=== PATIENT | male | born 1960 | race African-American/Black ===

== ENCOUNTER 2017-01-11 14:18 | Inpatient (IN) | payer MEDICARE ==
[~2017-01-11] VITALS: Ht 177.8 cm; Wt 103.8 kg
--- NOTE | ~2017-01-11 | OR ---
Unit #: [id number] #: [id number] Patient: CASH CLANCY [id number] [address] [address] [id number] I MR#: [id number] NAME: CASH CLANCY. ROOM: [facility] Date of Procedure: 01/16/2017 Admission Date: 01/13/2017 Surgeon: Leopoldo Galvez M.D. : 1960 Attending Physician: Chinedu Narayan M.D. Primary Care Physician: Agustin Clark A.P.R.N. OPERATIVE REPORT INDICATIONS FOR PROCEDURE Esophagogastroduodenoscopy with biopsies. INDICATIONS FOR PROCEDURE The patient with severe anemia of iron deficiency kind, undergoing evaluation with upper endoscopy to look for any source of bleeding. MEDICATIONS Monitored anesthesia. POSTOPERATIVE FINDINGS 1. Mild hemorrhagic gastritis diffusely, biopsies taken. 2. Normal esophagus. 3. Normal duodenum and distal duodenum. PLAN Continue with iron supplementation and PPI therapy. DESCRIPTION OF PROCEDURE The patient was explained of the procedure, risks, and benefits along with risks and benefits of anesthesia. He was brought to the endoscopy room. Propofol anesthesia was given. Bite block was placed. The scope was passed down the mouth into the esophagus, stomach, duodenum, and distal duodenum. Findings as described. Biopsies taken. Gently, I pulled it out of the patient's mouth. He tolerated it well. Dictated by... Sharee Cabrera/tejasl TD: 01/16/2017 18:11 JOB #: [id number] Unit #: [id number] #: [id number] Patient: CASH CLANCY OPERATIVE REPORT Page 1 of 1 X Leopoldo Galvez MD PROCEDURE OPERATIVE NOTE
--- NOTE | ~2017-01-11 | US77 ---
[facility] A Service of [facility] RADIOLOGY TEXT RESULTS PATIENT: CASH CLANCY LOCATION: [facility] 329- : [birth year] UNIT #: [id number] AGE: [address]: RASHAAD CHANEY V SEX: M ORDER DR: [id number] [facility] [address]. [place], [place] [address] [id number] MR#: [id number] #: [id number] NAME: CASH CLANCY. : 1960 SEX: M STUDY DATE/TIME: 01/12/2017 8:00 UNIT: [address] ROOM: [facility] STUDY DESCRIPTION: US Kidney Bilateral Complete Attending Physician: Rashaad Chaney M.D. Ordering Physician: Maria Fernanda Aragon M.D. Primary Care Physician: Agustin Clark A.P.R.N. MEDICAL IMAGING REPORT This report is preliminary unless electronic signature is present EXAM Renal ultrasound 01/12/2017 HISTORY Acute renal insufficiency, abnormal renal function tests. Elevated BUN of 76, elevated creatinine of 2.7. Abnormally low GFR of 29.2, diabetes and hypertension. FINDINGS The right kidney measures 11.7 cm while the left kidney measured 11 cm in longitudinal dimensions. There is no evidence of hydronephrosis. There is a nonobstructing stone in the midportion of the right kidney. No cystic or solid mass lesions were seen on either kidney. There is normal renal cortical echogenicity. Images of the bladder are normal. IMPRESSION 1. Nonobstructing right renal stone. Otherwise negative renal ultrasound. 2. Images of the bladder are normal. Dictated by... Bartolome Valdez M.D. THIS IS AN ELECTRONICALLY VERIFIED REPORT Bartolome Valdez M.D. at 01/13/2017 7:32 AM RANDY/isrrael TD: 01/12/2017 11:45 JOB #: [id number] MEDICAL IMAGING REPORT [facility] A Service of [facility] RADIOLOGY TEXT RESULTS PATIENT: CASH CLANCY LOCATION: [facility] 329-01 : [birth year] UNIT #: [id number] AGE: [address]: RASHAAD CHANEY V SEX: M ORDER DR: Page 1 of 1 COPY
--- NOTE | ~2017-01-11 | HP ---
Unit #: [id number] #: [id number] Patient: CASH CLANCY [id number] [address] [address] [id number] MR#: [id number] NAME: CASH CLANCY. ROOM: Age: 56 Sex: M Admission Date: 01/11/2017 : 1960 Attending Physician: Yunior Tsang M.D. Primary Care Physician: Agustin Clark A.P.R.N. HISTORY AND PHYSICAL CHIEF COMPLAINT Altered mental status and lethargy. HISTORY OF PRESENT ILLNESS The patient is a 56-year-old male with a history of coronary artery disease, chronic kidney disease stage 3, diabetes type 2, anemia, and chronic systolic heart failure, brought to the emergency room with altered mental status and lethargy. The patient was at [facility] around 1 p.m. earlier today and was found to be lethargic and incoherent. The patient was not responding. He denies any headache or any pain. However, in the emergency room, he complained of numbness and tingling in the right lower extremity and weakness in the right upper extremity. The patient denies any chest pain. The patient is being admitted for the above reasons. Denies any head trauma, denies any loss consciousness, and denies chest pain or diaphoresis. PAST MEDICAL HISTORY 1. Coronary artery disease. 2. Gouty arthritis. 3. Chronic kidney disease. 4. Diabetes mellitus type 2. 5. Hypertension. 6. Anemia. 7. Chronic systolic congestive heart failure. 8. Gastritis. PAST SURGICAL HISTORY 1. Coronary artery bypass grafting. 2. Right knee arthroscopic synovectomy. 3. Neck surgery. 4. I and D of scalp abscess. ALLERGIES No known drug allergies. HOME MEDICATIONS 1. Bumex. 2. Aspirin. 3. Multivitamins. 4. Coreg. 5. Ferrous sulfate. 6. Hydralazine. 7. Cozaar. Unit #: [id number] #: [id number] Patient: CASH CLANCY SOCIAL HISTORY Patient lives with his sister and his cyhudek-bl-jhc. He is a lifelong nonsmoker and does not drink alcohol or any illicit drug abuse. FAMILY HISTORY Hypertension and diabetes. REVIEW OF SYSTEMS Positive for lethargy, positive for numbness, positive for weakness. Denies any headache, denies any shortness of breath, and denies any chest pain. All other systems have been reviewed and are negative. PHYSICAL EXAMINATION GENERAL: Patient is lying in bed not in acute distress. VITAL SIGNS: Temperature is 99.6, pulse 80, respiratory rate 20, blood pressure 111/56, and saturating 97% on room air. HEENT: Head atraumatic, normocephalic. Pupils equal, round, and reactive to light and accommodation. Extraocular movements are intact. Dry mucous membranes. NECK: Supple. LUNGS: Decreased air entry at the bases. HEART: Regular rate and rhythm. ABDOMEN: Soft. Positive bowel sounds. EXTREMITIES: Weakness in the right upper extremity compared to the left upper extremity. No cellulitis. Positive for spasms in the right arm and biceps, (1) flexion, and unable to (2) extend. NEUROLOGIC: Alert, awake, and oriented. No gross focal motor deficit. DIAGNOSTIC STUDIES LABORATORY: Glucose is 148. Troponin less than 0.05. INR is 1.1. Sodium 136, potassium 4.4, chloride 103, bicarb 21, glucose 154, BUN 86, creatinine 3.2, calcium 8.6, AST 31, ALT 29, alkaline phosphatase 131, and albumin is 3.2. WBC 15.1, hemoglobin 8.9, hematocrit 26.7, and platelets 284,000. Urinalysis shows 2+ protein. ASSESSMENT 1. Altered mental status/transient ischemic attack. 2. Acute kidney injury on chronic kidney disease. 3. Right upper extremity weakness and spasm. PLAN Admit the patient to observation with telemetry. Will have a CT of the head to rule out stroke and will have a Renal consult for the acute on chronic kidney disease and a Neurology consult for the right upper extremity weakness and TIA. Hold diuretics and repeat the labs again in the morning. Accu-Cheks a.c. and at bedtime. Further recommendations will follow as more lab results are available. Dictated by Sharee Shah TD: 01/11/2017 21:32 JOB #: [id number] Unit #: [id number] #: [id number] Patient: CASH CLANCY HISTORY AND PHYSICAL Page 1 of 1 X KSENIA BEY MD X HISTORY AND PHYSICAL
--- NOTE | ~2017-01-11 | CO ---
Unit #: [id number] #: [id number] Patient: CASH CLANCY [id number] [facility] [address]. [place], [place] [address] [id number] I MR#: [id number] NAME: CASH CLANCY. ROOM: 329 Age: 56 Sex: M Admission Date: 01/11/2017 : 1960 Attending Physician: Chinedu Narayan M.D. Primary Care Physician: Agustin Clark A.P.R.N. Requesting Physician: Fausto Cordoba M.D. Consultation Date: 01/12/2017 CONSULTATION REPORT REASON FOR CONSULTATION Mental status changes, lethargy and also weakness and pain. PATIENT IDENTIFICATION This 56-year-old right-handed -Sammarinese male who was evaluated in room 329 at [facility]. SOURCE OF INFORMATION The patient and evaluation done by Dr. Cordoba. PROBLEM LIST 1. Coronary artery disease. 2. Gouty arthritis. 3. Chronic kidney disease but he is not on dialysis. 4. Diabetes mellitus type 2. 5. Hypertension. 6. Anemia. 7. Chronic systolic congestive heart failure. 8. Gastritis. 9. Status post CABG. 10. Right knee arthroscopic synovectomy. 11. Neck surgery. 12. I and D of scalp abscess. HISTORY OF PRESENT ILLNESS This is a very pleasant 56-year-old gentleman who actually was doing some sort of rastafari group and he began lethargic and had confusion. This was around 1:00 p.m. He came in around 2:18 p.m. via EMS with acute mental status changes, lethargy. He has not facial symptoms and sometimes his right upper extremity, sometime his right lower extremity, sometimes the left lower extremity and now is complaining of a significant pain in his right upper extremity and left lower extremity. He would not bend it. He would not let anybody touch it. He is able to move it. In the upper extremity there was no drift and weakness was very questionable, even touching his sole on the left leg started screaming. When I asked him to bend his arm, he started clutching his elbow complaining of pain. His vital signs are okay but his BUN and creatinine was elevated at 86 and 3.2. His white count was elevated at 15.1 when he came in. His H and H is 8.9 and 26.7, whether this is anemia of chronic disease we do not know. His head CT showed prior strokes. Urinalysis was otherwise unremarkable. No change in medication. No falls. No injuries. Nothing suggesting history of primary neuromuscular condition. No seizures. No (1) level. No bowel or bladder symptoms. Unit #: [id number] #: [id number] Patient: CASH CLANCY PAST MEDICAL HISTORY As discussed. PAST SURGICAL HISTORY As discussed. ALLERGIES None. HOME MEDICATIONS 1. Bumex. 2. Aspirin. 3. Multivitamin. 4. Coreg. 5. Ferrous sulfate. 6. Hydralazine. 7. Cozaar. FAMILY HISTORY Hypertension and diabetes. SOCIAL HISTORY I believe he is single and lives with his sister and ibbqolv-ej-eoy. He is a nonsmoker and nondrinker. REVIEW OF SYSTEMS Patient denies any weight issues, fever, chills, rigors, or sweats. HEENT: No headaches. No double vision, earache, runny nose or sore throat. CARDIOVASCULAR: No chest pain, clubbing, cyanosis, orthopnea, or palpitations. PULMONARY: No shortness of air, cough, or expectoration. ABDOMEN: No nausea, vomiting, diarrhea, or constipation. : No genitourinary symptoms. EXTREMITIES: Problem were discussed. BACK: Hospital back problem. PSYCHIATRIC: No issues. NEUROLOGICAL: As discussed. HEMATOLOGIC/DERMATOLOGIC/ENDOCRINE: No problems. PHYSICAL EXAMINATION VITAL SIGNS: Temperature 98 degrees Fahrenheit, T. max was 98.6, pulse 78, respirations 16, blood pressure 166/83, O2 sats are 98%, weight 290 pounds, BMI was 30. NEUROLOGICAL EXAMINATION: The patient is awake, alert. He can name and he can follow commands. No right/left confusion. No finger agnosia. CRANIAL NERVE EXAMINATION: Demonstrates full marvin of vision. Eye movements are conjugate. I did not see any ptosis. I did not see any nystagmus. Extraocular movements are intact. Sensation on the face and scalp are normal. Central muscles of facial expression are normal. Hearing seemed to be intact bilaterally. Tongue was midline. Uvula was midline. Palate elevation was normal. Head turning and shoulder shrugs were unremarkable. No neck movement abnormalities. MOTOR EXAMINATION: He had generalized weakness. I do not see any drift he was able to lift both arms but would not give me fully effort. He is complaining of pain both in active and passive movements. In the left Unit #: [id number] #: [id number] Patient: CASH CLANCY lower extremity he is probably 3- but again I couldn't even touch his left sole. I do not see any swelling. I could not get any reflexes obviously. No extinction was seen. Romberg was obviously not evaluated. COORDINATION: In the upper extremity really couldn't do much because of his elbow pain. DIAGNOSTIC STUDIES LABS AND IMAGING: Reviewed. IMPRESSION Very atypical diffuse pain but maybe more in the right elbow and the left leg, could it be gouty arthritis, is there something else. He did have strokes in the past, so I am going to start MRI of the brain and other labs. I have already talked to Dr. Narayan and will see how things go. This may be more like a musculoskeletal pain but will see how things go. Based on the MRI, will decide future course of action. I will followup. Call me if you have any other questions or concerns. Dictated by... Sharee Krueger/franko TD: 01/12/2017 11:56 JOB #: [id number] CONSULTATION REPORT Page 1 of 1 X Citlali Paez MD X CONSULTATION REPORT
--- NOTE | ~2017-01-11 | DS ---
Unit #: [id number] #: [id number] Patient: CASH CLANCY [id number] [address] [place], [place] [address] [id number] I MR#: [id number] NAME: CASH CLANCY. ROOM: 329 Age: 56 Sex: M Admission Date: 01/13/2017 : 1960 Discharge Date: Attending Physician: Chinedu Narayan M.D. Primary Care Physician: Agustin Clark A.P.R.N. DISCHARGE SUMMARY FINAL DIAGNOSES 1. Altered mental status and lethargy, resolved. 2. Severe iron deficiency anemia. 3. Acute on chronic renal failure. 4. Hyperuricemia. 5. Allodynia. SECONDARY DIAGNOSES 1. History of gout. 2. 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 3. Diabetes mellitus. CONSULTS 1. Nephrology, Dr. Sina Aragon. 2. Neurology, Dr. Paez. 3. Gastroenterology, Dr. Leopoldo Galvez. 4. Vascular surgery, Dr. Young. PROCEDURES 1. He had left temporal artery biopsy done on 01/15/17. 2. He had an EGD done by Dr. Galvez on 01/16/17 with a postop diagnosis of mild esophagitis, gastritis. Recommendation was PPI. 3. He was transfused with 1 unit of packed red blood cells on 01/16/17. HOSPITAL COURSE The patient is a pleasant 56-year-old male who presented for altered mental status. He has a history of coronary artery disease, chronic kidney disease stage 3, diabetes mellitus type 2, anemia, chronic systolic heart failure. He was brought to the emergency room with altered mental status. He usually walks with a walker at home. Was extremely lethargic and complained of pain in his legs and feet. He had a CAT scan and MRI and workup by neurology, which did not show any acute strokes. Neurology did feel that he was probably having pain in his feet secondary to allodynia. Cardiology did see the patient. He had a history of TIA. The diagnosis of giant cell arteritis was entertained. Biopsy was done. He was started on high-dose steroids. Biopsy was inconclusive to show evidence of giant cell arteritis. He was started on anticoagulation with Coumadin with goal of 2 to 3 INR. For his anemia he did receive 1 units packed red blood cells. Today, the date of discharge, hemoglobin is 8.6. Unit #: [id number] #: [id number] Patient: CASH CLANCY Acute on chronic kidney disease. He was seen by nephrology, Dr. Miguel. He was put on IV fluids, and he was started on low-dose ARB with losartan 25 mg p.o. b.i.d. per cardiology in agreement with nephrology. Diabetes mellitus type 2. Sugars are running high. His diabetic medications have been restarted. He is evaluated, suitable and stable for discharge, and he was seen and evaluated by physical therapy prior to discharge. MEDICATIONS ON DISCHARGE 1. Prednisone 40 mg every morning. This will be tapered as an outpatient. 2. Sodium bicarb 1,300 mg p.o. b.i.d. 3. Tylenol 650 mg p.o. q.6 hours p.r.n. mild pain. 4. Coumadin 3 mg p.o. daily. Repeat PT and INR on 01/20/17 for followup. 5. Diflucan 100 mg p.o. daily for 7 more days. 6. Coreg 25 mg p.o. b.i.d. 7. Amlodipine 10 mg p.o. daily. 8. Lipitor 40 mg p.o. at bedtime. 9. Hydralazine 100 mg p.o. t.i.d. 10. Cozaar 25 mg p.o. b.i.d. 11. Levemir 10 units subcu at 2200 hours. This may be addressed at outpatient followup. 12. Ferrous gluconate 324 mg p.o. daily per home dose. 13. Multivitamin 1 tablet p.o. daily. 14. Aspirin 81 mg p.o. daily. 15. Lortab 7.5/325 mg 1 tablet p.o. q.4 hours p.r.n. pain. 16. Uloric 40 mg p.o. daily. DISCHARGE PLAN He is scheduled to follow up with me in the office on 01/20/17. Will repeat a PT-INR and check a CBC, BMP and TSH, as well. Will consider outpatient physical therapy referral at the visit. NOTE: Time spent coordinating discharge was about 40 minutes. Dictated by... Sharee Appiah TD: 01/18/2017 16:11 JOB #: [id number] DISCHARGE SUMMARY Page 1 of 1 X Bia Ruano MD X DISCHARGE SUMMARY
--- NOTE | ~2017-01-11 | MR122 ---
[facility] A Service of [facility] RADIOLOGY TEXT RESULTS PATIENT: CASH CLANCY LOCATION: [facility] 329- : 60 UNIT #: [id number] AGE: [address]: RASHAAD CHANEY V SEX: M ORDER DR: [id number] [facility] [address] [place], [place] [address] [id number] I MR#: [id number] Acc #: [id number] NAME: CASH CLANCY. : 1960 SEX: M STUDY DATE/TIME: 01/13/2017 12:09 UNIT: [address] ROOM: [facility] STUDY DESCRIPTION: MR MRA Head Wo Contrast Attending Physician: Rashaad Chaney M.D. Ordering Physician: Citlali Paez M.D. Primary Care Physician: Agustin Clark A.P.R.N. MRI CENTER REPORT This report is preliminary unless electronic signature is present. EXAM MR angiogram of the head without contrast dated 01/13/2017. COMPARISON MRA neck without contrast dated 01/13/2017, MRI brain without contrast dated 01/12/2017. CT angiogram head dated 05/25/2010. HISTORY Right arm and left leg weakness since 01/11/2017. It started while patient was at [facility]. Altered mental status. FINDINGS Source and 3-D reconstruction MIP images of the saxman of [place] was obtained without contrast. Irregularities are noted throughout the course of bilateral intracranial internal carotid arteries suggestive of atherosclerotic plaques with mild narrowing involving multiple short segments without any qcyhjonm-jl-aqzzly stenosis or distal flow limitation. Mild irregularities are also noted in bilateral middle cerebral arteries involving the lateral M1 segments bilaterally and branch vessel. It is mild without any significant distal flow limitation. Bilateral anterior cerebral arteries are grossly unremarkable. ACOM is present. A small left PCOM is probably present. A tiny right PCOM cannot be excluded. Basilar artery, bilateral vertebral arteries and bilateral posterior cerebral arteries are within normal limits. No aneurysm or AVM is seen. IMPRESSION 1. Irregularities are noted in bilateral intracranial internal carotid arteries and bilateral middle cerebral arteries with short segments of stenosis in bilateral MCA involving lateral M1 segments and the left MCA proximal branch. No distal flow limitation. 2. No aneurysm or AVM. ACOM and left PCOM are present. [facility] A Service of [facility] RADIOLOGY TEXT RESULTS PATIENT: CASH CLANCY LOCATION: [place] [address] : [birth year] UNIT #: [id number] AGE: [address]: RASHAAD CHANEY V SEX: M ORDER DR: Dictated by... Jazz Smith M.D. THIS IS AN ELECTRONICALLY VERIFIED REPORT Jazz Smith M.D. at 01/15/2017 5:23 PM CPR/rnr TD: 01/13/2017 16:55 JOB #: [id number] MRI CENTER REPORT Page 1 of 1 COPY
--- NOTE | ~2017-01-11 | CO ---
Unit #: [id number] #: [id number] Patient: CASH CLANCY [id number] [address] [address] [id number] I MR#: [id number] NAME: CASH CLANCY. ROOM: 329 Age: 56 Sex: M Admission Date: 01/13/2017 : 1960 Attending Physician: Chinedu Narayan M.D. Primary Care Physician: Agustin Clark A.P.R.N. Consultation Date: 01/14/2017 CONSULTATION REPORT REASON FOR CONSULTATION Possible need for temporal artery biopsy, giant cell arteritis. HISTORY OF PRESENT ILLNESS The patient is a 56-year-old gentleman with a history of coronary artery disease and chronic kidney disease, who was brought to the emergency room with altered mental status and lethargy while at a jain group. At that time he was complaining significantly of pain in his elbow as well as foot. He was very difficult to obtain exam at that time because of his change in mental status. He reported numbness and tingling in the right leg and weakness in the right upper extremity. He denied any significant chest pain or trauma. A full workup was performed, including significant laboratories. He also had a SELVIN performed, that demonstrated some significant atherosclerotic disease in the aorta. Based on blood work he was started on steroids and has improved remarkably since his admission. We were consulted at this time for the possibility of artery biopsy to evaluate for the possibly of giant cell arteritis. At this time Mr. Clancy has no other new complaints. He has no pain. He is diet. Currently he has no other current complaints. PAST MEDICAL HISTORY 1. Coronary artery disease. 2. Arthritis. 3. Chronic kidney disease. 4. Diabetes. 5. Hypertension. 6. Congestive heart failure. 7. Gastritis. PAST SURGICAL HISTORY 1. Coronary artery bypass grafting. 2. Right knee synovectomy. 3. Neck surgery. 4. Incision and drainage of scalp abscess. SOCIAL HISTORY He is a nonsmoker and nondrinker. FAMILY HISTORY Hypertension and diabetes. ALLERGIES No known drug allergies. Unit #: [id number] #: [id number] Patient: CASH CLANCY HOME MEDICATIONS 1. Bumex. 2. Aspirin. 3. Coreg. 4. Hydralazine. 5. Cozaar. IN HOSPITAL MEDICATIONS Prednisone. REVIEW OF SYSTEMS Per the history of present illness. Fourteen point review of systems is negative per questioning. PHYSICAL EXAMINATION GENERAL: The patient is a well-groomed, well-developed individual appearing his stated age. No distress. Answers questions appropriately. VITALS: Temperature 98, blood pressure 164/91, respiratory rate 18, pulse 79. HEENT: Pupils equal and reactive to light and accommodation. Extraocular movements are intact. Mucous membranes are moist. No intraoral or intramucosal lesions on inspection. NECK: Supple. No jugular venous distension. No carotid bruits. Trachea midline. Thyroid is midline without enlargement. HEART: S1 and S2. Regular rate and rhythm. No murmurs. LUNGS: Clear to auscultation bilaterally with good air entry. No wheezing or crackles. ABDOMEN: Soft, nontender and nondistended. Positive bowel sounds. No abdominal masses or hernias are identified. VASCULAR: Positive radial and femoral pulses bilateral. Right pedal pulses are not palpable. Left pedal pulses are easily palpable. Palpable temporal pulses bilaterally without tenderness with palpation. LYMPHATICS: No lymphadenopathy of the cervical or femoral chain. MUSCULOSKELETAL: No soft tissue masses or bony deformities. No limb length or limb circumference abnormalities bilaterally. SKIN: No skin lesions, wounds, ulcerations or dermatologic changes. PSYCHIATRIC: Alert and oriented times 3. NEUROLOGIC: Cranial nerves II through XII are intact, 5/5 strength in all extremities. Normal sensation in all extremities. DIAGNOSTIC STUDIES LABORATORY: ESR was greater than 120. CRP was 19. CARDIOVASCULAR: SELVIN documented atherosclerotic changes on the aorta, as well as soft atheroma. ASSESSMENT Mr. Clancy with the possibility of giant cell arteritis with elevated ESR and CRP, currently improving on steroids. Mr. Clancy was told that he has the possibility of the need for a temporal artery biopsy to evaluate the possibly of giant cell arteritis. However, he is currently doing well on steroids and we will discuss with the primary medical team whether biopsy results would change the management currently of this gentleman. Should he need steroids regardless of his biopsy results, then biopsy may not be necessary at this time. He does not have tenderness over the temporal arteries and does not Unit #: [id number] #: [id number] Patient: CASH CLANCY have headache. His symptoms are consistent with lower extremity symptoms. If biopsy is still needed, we did discuss with Mr. Clancy the planned procedure, including the associated risks and benefits, including but not limited to possibility of bleeding, infection and nerve injury. He would wish to proceed if needed. We will make him n.p.o. after midnight and give him IV fluids and consent him for the temporal artery biopsy. He was agreeable to the plan as discussed and had the remainder of his questions answered to his satisfaction. Thank you for having me see Mr. Clancy. If you have any questions, do not hesitate to contact me. Dictated by... Sharee Sheriff/melodie TD: 01/15/2017 08:27 JOB #: [id number] CONSULTATION REPORT Page 1 of 1 X Eileen Young MD X CONSULTATION REPORT
--- NOTE | ~2017-01-11 | CO ---
Unit #: [id number] #: [id number] Patient: CASH CLANCY [id number] [address] [place], [place] [address] [id number] I MR#: [id number] NAME: CASH CLANCY. ROOM: 329 Age: Sex: M Admission Date: 01/13/2017 : 1960 Attending Physician: Chinedu Narayan M.D. Primary Care Physician: Agustin Clark A.P.R.N. Consultation Date: 01/13/2017 CONSULTATION REPORT REASON FOR CONSULT Renal insufficiency. Thank you very much for having me see this patient in consultation. HISTORY OF PRESENT ILLNESS Mr. Cash Clancy is a 56-year-old, -Nepalese male with a history of chronic kidney disease whose creatinine in 2015 was ranging between 1.9 and 2 who presented here. Apparently yesterday at latter day and was outside and got confused and started having some lower back pain and leg pain. Presented here. CT scan of the head was negative. He was noted to have an increased BUN and creatinine of 86 and 3.2. Because of this, I was asked to see the patient. Patient had low postvoid residual. He was started on some IV fluids and his creatinine today is down to 2.7. He states that he mainly has had some numbness in his left lower leg and he states it actually started after he got here when they put the compression hose on. He denies any chest pain, shortness of breath, nausea or vomiting and he is alert. PAST MEDICAL HISTORY History of chronic kidney disease, history of hypertension, history of atherosclerotic coronary artery disease status post coronary artery bypass graft. He had an EF in 2011 of 20-25 and, in 2013, it was up to 45% to 50%. He has a history of gastritis, history of anemia, history of diabetes mellitus, and, again, history of hypertension. FAMILY HISTORY Negative for kidney disease. SOCIAL HISTORY Socially, he does not smoke or drink. He lives with his sister and [id number]. MEDICATIONS His medicines include: 1. Hydralazine 100 mg t.i.d. 2. Currently on Norvasc. 3. FeSO4 324 mg b.i.d. 4. Tylenol p.r.n. for pain. 5. Aspirin 81 mg a day. 6. Carvedilol 12.5 mg a day. At home, it looks like he was on: 7. Bumex 1 mg twice a day. Unit #: [id number] #: [id number] Patient: CASH CLANCY 8. Cozaar 75 mg a day. REVIEW OF SYSTEMS Essentially negative, except for as mentioned in the HPI. He denies any visual problems, sinus problems, cough, hemoptysis, sore throat, or difficulty swallowing. No neck pain or neck stiffness. No chest pain, chest (1) , or palpitations. No (2) abdominal pain, nausea, vomiting, diarrhea. No lower extremity swelling. No recent seizures, strokes, or skin rashes. He denies any nonsteroidal use. PHYSICAL EXAMINATION VITAL SIGNS: His T. max. is 99.6, pulse 69-80, and blood pressure 111-169/56-88. HEENT: Head is normocephalic and atraumatic. His pupils are equal, round, and reactive to light. Extraocular muscles are intact. Hearing appears to be normal. His mouth is clear. No erythema. No exudate. NECK: Supple. No JVD. CARDIAC: He has a regular rate and rhythm with about a 1-2/6 systolic ejection murmur. LUNGS: His lungs are clear bilaterally. No wheezes, rhonchi, or rales. ABDOMEN: Bowel sounds positive. Nontender and soft. EXTREMITIES: He has no lower extremity swelling. His pulses are intact in upper and lower extremities. JOINTS: No joint pain or joint swelling. SKIN: No rashes. NEURO: Appears to be intact to motor and sensory grossly. : Deferred. DIAGNOSTIC STUDIES LABORATORY DATA: Again, BUN and creatinine of 86 and 3.2 upon admission and 76 and 2.7 today with a sodium of 140, potassium 4.2, chloride is 109, bicarb is 21, and glucose is 156. UA shows specific gravity of 1.015, 2+ protein, 2-5 RBCs, and negative WBCs. Calcium is 8.6 and albumin is 3.2. Hemoglobin 8.9, white count 15,100 with platelets of 284,000. Again, in May of 2016, creatinine 1.9 to 2. In 2012, he had a negative serology studies for renal insufficiency. In 2016, he had a negative renal ultrasound. ASSESSMENT AND PLAN 1. Acute on chronic kidney disease, stage 3. Certainly, a year ago his baseline creatinine was probably around 2. Certainly, it is up now. It is improving with IV fluids. I do not know what his EF is currently, but, again, it had improved, but will go ahead and decrease his IV fluids for now to 75 mL an hour. Will check a renal ultrasound to rule out obstruction. His postvoid residual is less than 200. Check urinary eosinophils to rule out acute interstitial nephritis. Agree with holding his losartan and his Bumex for now. Will check a BMP, phosphorus, and uric acid in a.m. and will continue to follow. 2. Left leg pain, questionable etiology. Neurology has been consulted. 3. Anemia. Hemoglobin is decreased on oral iron. Will check iron stores and see. Will also check stools for blood as well. 4. Increased WBC, questionable etiology. Will check blood and urine cultures. Dictated by... Unit #: [id number] #: [id number] Patient: CASH CLANCY M.D. WAD/ruy TD: 01/14/2017 07:50 JOB #: [id number] CONSULTATION REPORT Page 1 of 1 X Aris Aragon MD X CONSULTATION REPORT
--- NOTE | ~2017-01-11 | CT71 ---
[facility] A Service of [facility] RADIOLOGY TEXT RESULTS PATIENT: CASH CLANCY LOCATION: [facility] 329 : [birth year] UNIT #: [id number] AGE: [address]: RASHAAD CHANEY V SEX: M ORDER DR: [id number] [facility] [address] [place], [place] [address] [id number] I MR#: [id number] Acc #: [id number] NAME: CASH CLANCY. : 1960 SEX: M STUDY DATE/TIME: 01/11/2017 17:29 UNIT: [address] ROOM: [facility] STUDY DESCRIPTION: CT Head Wo Contrast Attending Physician: Rashaad Chaney M.D. Ordering Physician: Yunior Tsang M.D. Primary Care Physician: Agustin Clark A.P.R.N. MEDICAL IMAGING REPORT This report is preliminary unless electronic signature is present EXAM CT head INDICATION Confusion and disorientation. Lethargy and weakness. Numbness and tingling in the right lower extremity. TECHNIQUE CT of the head without contrast. This CT exam was performed with one or more of the following radiation dose reduction techniques: automatic exposure control, adjustment of mA and/or kV according to patient size, and iterative reconstruction. COMPARISON CT head dated 10/15/2015. FINDINGS There is no acute intracranial hemorrhage, mass lesion, or acute infarct. There is encephalomalacia in the right parietal lobe indicative of prior infarct. There is a small area of encephalomalacia in the left frontal lobe. The ventricles and basilar cisterns are normal in size and configuration. No extraaxial collections. There are some chronic small vessel changes within the basal ganglia. IMPRESSION 1. No acute intracranial findings. 2. Small scattered areas of encephalomalacia from prior infarcts. Dictated by... Manoj Juarez M.D. THIS IS AN ELECTRONICALLY VERIFIED REPORT [facility] A Service of [facility] [place] [place] RADIOLOGY TEXT RESULTS PATIENT: CASH CLANCY LOCATION: [facility] [address] : [birth year] UNIT #: [id number] AGE: [address]: RASHAAD CHANEY V SEX: M ORDER DR: Manoj Juarez M.D. at 01/13/2017 10:30 AM Erin TD: 01/12/2017 08:55 JOB #: [id number] MEDICAL IMAGING REPORT Page 1 of 1 COPY
--- NOTE | ~2017-01-11 | MR134 ---
[facility] A Service of [facility] RADIOLOGY TEXT RESULTS PATIENT: CASH CLANCY LOCATION: [facility] 329- : [birth year] UNIT #: [id number] AGE: [address]: RASHAAD CHANEY V SEX: M ORDER DR: [id number] [facility] [address] [place], [place] [address] [id number] I MR#: [id number] Acc #: [id number] NAME: ACSH CLANCY. : 1960 SEX: M STUDY DATE/TIME: 01/13/2017 12:19 UNIT: [address] ROOM: [facility] STUDY DESCRIPTION: MR MRA Neck Wo Contrast Attending Physician: Rashaad Chaney M.D. Ordering Physician: Citlali Paez M.D. Primary Care Physician: Agustin Clark A.P.R.N. MRI CENTER REPORT This report is preliminary unless electronic signature is present. EXAM MR angiogram of the neck without contrast dated 01/13/2017 COMPARISON MRA head without contrast dated 01/13/2017 and MRI brain dated 01/12/2017. HISTORY Right arm and left leg weakness since 01/11/2017 while patient was at [facility]. Altered mental status. FINDINGS Source and 3-D reconstruction MIP images of the neck arteries were obtained without contrast. Two vessel aortic arch is seen with common origin of the left common carotid artery with the innominate artery. The left vertebral artery arises from the right subclavian artery immediately after the origin of the left subclavian artery. Bilateral vertebral arteries are codominant with relatively expected course, caliber and flow. Bilateral common, internal and external carotid arteries do not demonstrate any significant abnormality. No significant stenosis, aneurysm, or AVM is seen. IMPRESSION 1. No focal significant stenosis in bilateral internal carotid artery bulbs per NASCET criteria. 2. No aneurysm or AVM. Dictated by... Jazz Smith M.D. [facility] A Service of [facility] RADIOLOGY TEXT RESULTS PATIENT: CASH CLANCY LOCATION: [facility] 329-01 : [birth year] UNIT #: [id number] AGE: [address]: RASHAAD CHANEY V SEX: M ORDER DR: THIS IS AN ELECTRONICALLY VERIFIED REPORT Jazz Smith M.D. at 01/15/2017 5:23 PM CPR/rnr TD: 01/13/2017 17:07 JOB #: [id number] MRI CENTER REPORT Page 1 of 1 COPY
--- NOTE | ~2017-01-11 | OR ---
Unit #: [id number] #: [id number] Patient: CASH CLANCY [id number] [address] [place], [place] [address] [id number] I MR#: [id number] NAME: CASH CLANCY. ROOM: [facility] Date of Procedure: 01/15/2017 Admission Date: 01/13/2017 Surgeon: Jozef Robb M.D. : 1960 Attending Physician: Chinedu Narayan M.D. Primary Care Physician: Agustin Clark A.P.R.N. OPERATIVE REPORT PREOPERATIVE DIAGNOSIS Possible temporal arteritis. POSTOPERATIVE DIAGNOSIS Possible temporal arteritis. PROCEDURE PERFORMED Left temporal artery biopsy. ANESTHESIA 1% Xylocaine local with MAC. ESTIMATED BLOOD LOSS 5 mL. COMPLICATIONS None. INDICATIONS FOR PROCEDURE Mr. Cash lCancy is a 56-year-old gentleman, who was noted to have a mobile thrombus in his aorta as well as irregularities of his aortic wall on imaging studies. He was also noted to have elevation of inflammatory markers. His differential diagnosis includes giant cell arteritis. He was taken to the operating room to undergo elective temporal artery biopsy to facilitate his workup. DESCRIPTION OF PROCEDURE The patient was placed in supine position with his head turned to the right. His left preauricular region was prepped and sterilely draped. 1% Xylocaine was used to infiltrate the skin and subcutaneous tissue over the superficial temporal artery pulse. A longitudinal incision was made in the left preauricular region. Dissection continued through the subcutaneous tissue to identify the temporal artery. The temporal artery was dissected free circumferentially for several centimeters. Small side branches were doubly ligated with 4-0 silk ties and divided. The artery was clamped, divided, and ligated proximally and distally with 3-0 silk ties. The intervening segment was removed and sent to pathology. Hemostasis was achieved in the wound with the use of electrocautery. The wound was irrigated with normal saline. The subcutaneous tissue was approximated using interrupted 3-0 Vicryl. The skin was closed using running 4-0 Vicryl subcuticular sutures. Steri-Strips were applied. Unit #: [id number] #: [id number] Patient: CASH CLANCY Sponge and needle count were correct. The patient tolerated the procedure well and was taken to the postanesthesia care unit in stable condition. Dictated by... Sharee Peters/kai TD: 01/15/2017 15:52 JOB #: [id number] OPERATIVE REPORT Page 1 of 1 X Jozef Robb MD X PROCEDURE OPERATIVE NOTE
--- NOTE | ~2017-01-11 | CO ---
Unit #: [id number] #: [id number] Patient: CASH CLANCY [id number] [address] [place], [place] [address] [id number] I MR#: [id number] NAME: CASH CLANCY. ROOM: 329 Age: 56 Sex: M Admission Date: 01/13/2017 : 1960 Attending Physician: Chinedu Narayan M.D. Primary Care Physician: Agustin Clark A.P.R.N. Consultation Date: 01/13/2017 CONSULTATION REPORT REASON FOR CONSULT Evaluate for SELVIN. HISTORY OF PRESENT ILLNESS This is a 56-year-old -Stateless male well known to Dr. Johnson with a past medical history of coronary artery disease, status post coronary artery bypass grafting and PFO closure in July 2011. The patient had 2D echocardiogram completed in September 2015, which revealed an ejection fraction of 40% with impaired LV relaxation. His previous ejection fraction was 20% to 25% per echo in 2011 and then 45% to 50% in 2013. Additional past medical history includes: Chronic systolic congestive heart failure, hypertension, diabetes mellitus, chronic kidney disease, and chronic anemia. The patient is a lifelong nonsmoker. He is seen by our group in the hospital in September 2015 for syncope and dizziness. He was found to be orthostatic. His hydralazine was stopped. His Bumex was held. He was discharged and instructed to follow up in our office. He presented to the hospital on January 11, 2017 with complaints of not feeling well. The patient states that he was at a family gathering and was outside. He states that he was out of it and could not speak to some extent. He had some dizziness but no syncope. He had some visual changes in his left eye. He woke up in the morning with right arm numbness and pain. He has also had some left knee swelling. He has had no chest pain or shortness of breath. There are occasional palpitations. No reports PND or orthopnea. Over the last week, he has weaker than normal and has been requiring use of a walker. Prior to that, he was ambulating without assistance. In the emergency department, initial labs revealed a white blood cell count of 15.1. Hemoglobin was 8.9 with hematocrit 26.7. Chemistry revealed normal electrolytes. Creatinine was 3.2 with a BUN of 86. Upon review of previous labs, the patient's creatinine has varied from 1.9 to 2 in September 2015. Previously had creatinines up to 3.7 in July 2015. He was admitted for altered mental status and possible TIA. Neurology was consulted and MRI of the brain is pending. Nephrology was consulted for acute on chronic kidney disease. MRI is pending. CT of the head without contrast revealed no acute abnormalities. Did have small scattered areas of prior infarcts. Cardiology was consulted to determine if SELVIN is needed. PAST MEDICAL HISTORY 1. Previous admission to [facility] in September 2015 for dizziness and syncope. Positive orthostatic hypotension. 2. Coronary artery disease, status post coronary artery bypass grafting at [facility] in July 2011 with closure of PFO. Unit #: [id number] #: [id number] Patient: CASH CLANCY 3. A 2D echocardiogram, September 2015, revealed ejection fraction 40%. Impaired LV relaxation. Full report pending review. 4. Previous 2D echocardiogram in 2013 revealed an ejection fraction of 45% to 50%. Ejection fraction 20% to 25% in 2011. 5. Chronic systolic congestive heart failure. 6. Hypertension. 7. Diabetes mellitus type 2. 8. Chronic kidney disease. 9. Chronic anemia. 10. Osteoarthritis. 11. Gout. 12. Peripheral neuropathy. 13. Gastritis. 14. History of GI bleed. 15. Obesity. 16. Nonsmoker. PAST SURGICAL HISTORY 1. Coronary artery bypass grafting and PFO closure, August 19, 2011, times three grafts (JACOBS to LAD, saphenous vein graft to first diagonal, saphenous vein graft to ramus). 2. I and D of scalp abscess. 3. Right knee arthroscopic synovectomy. 4. Neck surgery. HOME MEDICATIONS List of home medications include: 1. Bumex. 2. Aspirin. 3. Multivitamin. 4. Coreg. 5. Ferrous sulfate. 6. Hydralazine. 7. Cozaar. Doses to be reviewed. ALLERGIES No known drug allergies. SOCIAL HISTORY The patient lives with his brother and sister. He is a lifetime nonsmoker. There are no reports of alcohol or illicit drug use. FAMILY HISTORY Significant for heart disease. His father had a myocardial infarction at the age of 61 with placement of a coronary stent. REVIEW OF SYSTEMS A 10-point review of systems was negative except for details above in HPI. PHYSICAL EXAMINATION VITAL SIGNS: Temperature 98.2, pulse 74, blood pressure 132/74. CONSTITUTIONAL: This is a 56-year-old -Stateless male, who is tearful. SKIN: Warm and dry. NECK: Supple. No jugular venous distention. No hepatojugular reflux. Normal carotid upstrokes. No carotid bruits auscultated. Unit #: [id number] #: [id number] Patient: CASH CLANCY HEART: S1, S2. Regular rate and rhythm. No murmurs, rubs, or gallops. LUNGS: Bilateral breath sounds have good air entry throughout all lung marvin. Respirations even and nonlabored. No rales, rhonchi, or wheezes. ABDOMEN: Soft, nontender, nondistended. Positive bowel sounds auscultated x4 quadrants. No ascites noted. EXTREMITIES: Bilateral lower extremities have no pretibial pitting edema. DP and PT pulses 2+. Capillary refill less than 3 seconds. Left knee with pain and swelling. DIAGNOSTIC STUDIES LABORATORY: White blood cell count 14.8, hemoglobin 7.8, hematocrit 23.7, platelets 267,000. Sodium 139, potassium 4.5, chloride 109, CO2 of 21, BUN 74, creatinine 2.8, glucose 144. Magnesium 2.1. Uric acid 12.4. Calcium 8.1. Total protein 8, albumin 3.2, bilirubin normal, AST 31, ALT 29, alkaline phosphatase 131. Iron 10, TIBC 166, transferrin saturation 6. B12 of 433. Folate 7.4. Ferritin 963, transferrin 118. TSH 0.57. CRP 19.1. INR 1.1. IMAGING: CT of the head on January 11, 2017 reveals no acute intracranial findings. Small scattered prior infarcts. Chest x-ray on January 11, 2017 reveals no active disease. Borderline to mild cardiac enlargement with vascular congestion. Ultrasound of bilateral kidneys reveals nonobstructing right renal stone. Imaging of bladder normal. CARDIOVASCULAR: Electrocardiogram reveals sinus rhythm with a ventricular rate of 75 beats per minute. Left axis deviation. LVH. QTc 464 ms. IMPRESSION 1. Altered mental status and lethargy, resolved. 2. Right arm numbness, rule out transient ischemic attack/cerebrovascular accident. 3. Left knee pain, likely from gout. 4. Acute kidney injury on chronic kidney disease. 5. Coronary artery disease with history of coronary artery bypass grafting x3 in July 2011 with closure of patent foramen ovale. 6. Chronic systolic congestive heart failure, compensated. 7. Hypertension. 8. Diabetes mellitus type 2. 9. Chronic anemia. PLAN 1. The patient presented to the hospital with altered mental status and lethargy. There was also some right arm pain and reported speech abnormality. 2. He was admitted and neurology was consulted for possible transient ischemic attack. 3. A MRI of the brain has been ordered and is pending. 4. Cardiology was consulted to evaluate for possible SELVIN. 5. A transthoracic echocardiogram has been ordered and is pending. 6. Transthoracic echocardiogram and MRI imaging will be reviewed. Based on the results, the patient may need a SELVIN. 7. Due to symptoms and history of patent foramen ovale, he may need chronic anticoagulation with Coumadin. 8. There are no reports of chest pain or shortness of breath. 9. There is no evidence of congestive heart failure on exam. Unit #: [id number] #: [id number] Patient: CASH CLANCY 10. The patient will be continued on aspirin, beta simi, and hydralazine. No MIKE or ARB will be prescribed due to renal function. 11. The patient is on steroids and Uloric for probable gout of the left knee. Dictated by... Karina Arias APRN for Sharee Roper TD: 01/14/2017 09:51 JOB #: [id number] CONSULTATION REPORT Page 1 of 1 X X CONSULTATION REPORT
--- NOTE | ~2017-01-11 | EKG ---
PATIENT: CASH CLANCY UNIT #: [id number] Ventricular Rate: 75 BPM Atrial Rate: 75 BPM P-R Interval: 172 ms QRS Duration: 132 ms Q-T Interval: 416 ms QTC Calculation(Bezet): 464 ms P [place]: 56 degrees Calculated R [place]: -63 degrees Calculated T [place]: 104 degrees Diagnosis Line: Normal sinus rhythm Diagnosis Line: Left axis deviation Diagnosis Line: Left ventricular hypertrophy with QRS widening and Diagnosis Line: repolarization abnormality Diagnosis Line: Cannot rule out Septal infarct (cited on or before Diagnosis Line: 17-OCT-2015) Diagnosis Line: Abnormal ECG Diagnosis Line: When compared with ECG of 17-OCT-2015 05:36, Diagnosis Line: Premature ventricular complexes are no longer Diagnosis Line: Present Diagnosis Line: T wave inversion less evident in Lateral leads Diagnosis Line: Confirmed by BHASKAR INFANTE MD ([id number]) on 01/12/2017 Diagnosis Line: 6:22:37 PM INTERPRETING MD: NARESH NIX
--- NOTE | ~2017-01-11 | CR72 ---
[facility] A Service of [facility] & [facility] RADIOLOGY TEXT RESULTS PATIENT: CASH CLANCY LOCATION: [facility] 329- : 60 UNIT #: [id number] AGE: [address]: SHIVRASHAAD V SEX: M ORDER DR: [id number] [facility] [address] [place], [place] [address] [id number] I MR#: [id number] Acc #: [id number] NAME: CASH CLANCY. : 1960 SEX: M STUDY DATE/TIME: 01/11/2017 17:41 UNIT: [address] ROOM: [facility]ly [facility], [facility] STUDY DESCRIPTION: CR Chest Single View Portable Attending Physician: Fausto Cordoba M.D. Ordering Physician: Yunior Tsang M.D. Primary Care Physician: Agustin Clark A.P.R.N. MEDICAL IMAGING REPORT This report is preliminary unless electronic signature is present EXAM Portable chest HISTORY Dizzy and congestion today. FINDINGS Mild cardiac enlargement and borderline vascular congestion. No airspace infiltrates or effusions. Mediastinal clips. Sternotomy. IMPRESSION 1. No active disease in the lungs. 2. Borderline to mild cardiac enlargement and vascular congestion. Dictated by... Miller Armstrong M.D. THIS IS AN ELECTRONICALLY VERIFIED REPORT Miller Armstrong M.D. at 01/12/2017 11:17 PM DFL/df TD: 01/12/2017 07:42 JOB #: [id number] MEDICAL IMAGING REPORT Page 1 of 1 COPY
--- NOTE | ~2017-01-11 | MR18 ---
[facility] A Service of [facility] & [facility] RADIOLOGY TEXT RESULTS PATIENT: CASH CLANCY LOCATION: [facility] 329- : 60 UNIT #: [id number] AGE: [address]: RASHAAD CHANEY V SEX: M ORDER DR: [id number] [facility] [address] [place], [place] [address] [id number] I MR#: [id number] Acc #: [id number] NAME: CASH CLANCY. : 1960 SEX: M STUDY DATE/TIME: 01/12/2017 12:44 UNIT: [address] ROOM: formerly [facility] STUDY DESCRIPTION: MR Brain Wo Contrast Attending Physician: Rashaad Chaney M.D. Ordering Physician: Citlali Paez M.D. Primary Care Physician: Agustin Clark A.P.R.N. MRI CENTER REPORT This report is preliminary unless electronic signature is present. EXAM MRI of the brain without contrast dated 01/12/2017 COMPARISON MRI of the brain without contrast dated 07/02/2012 HISTORY Patient had left leg and right arm weakness while he was at [facility] yesterday (01/11/2017). Altered mental status. TECHNIQUE Multisequence multiplanar imaging of the brain was obtained without contrast. FINDINGS No acute stroke, space-occupying intracranial mass, mass effect, midline shift or hydrocephalus. Multiple hyperintense T2-signal lesions are scattered in the periventricular and subcortical white matter, bilateral basal ganglia and left thalamus. Hypointense gradient signal changes are noted in right parietal occipital and left occipital posterior cortex and adjacent subcortical white matter. They were also noted in the prior study from 4 years ago and are most consistent with hemosiderin deposition associated with the areas of gliosis and encephalomalacic change. No interval new acute abnormality like acute stroke, hydrocephalus or midline shift. Vascular flow voids of the major cerebral arteries and dural venous sinuses are not completely occluded in these thicker slices. Moderate bilateral mastoid mucosal thickening is seen, right worse than left. Minimal paranasal sinus mucosal thickening are noted. Orbits of the ocular structures do not demonstrate any significant abnormality. Thick slices through the sella with the pituitary gland, pineal region are unremarkable. Mild degenerative changes are in the cervical spine. [facility] A Service of [facility] & [facility] RADIOLOGY TEXT RESULTS PATIENT: CASH CLANCY LOCATION: [facility] 329-01 : 60 UNIT #: [id number] AGE: [address]: RASHAAD CHANEY V SEX: M ORDER DR: IMPRESSION 1. No acute stroke, space-occupying intracranial mass, mass effect, midline shift or hydrocephalus. 2. Scattered multiple hyperintense T2-signal lesions are noted in the brain, likely relating to moderate chronic microvascular ischemic change or migraine based on age and statistics. They could also be related to other old insults. There are areas of decreased gradient signal in right parietooccipital and left occipital lobes as described above, relatively stable since prior study from 4 years ago suggestive of hemosiderin deposition from likely old hemorrhagic insult. 3. No significant acute abnormality. Refer above. Dictated by... Jazz Smith M.D. THIS IS AN ELECTRONICALLY VERIFIED REPORT Jazz Smith M.D. at 01/15/2017 5:22 PM CPR/to TD: 01/12/2017 19:51 JOB #: [id number] MRI CENTER REPORT Page 1 of 1 COPY
[~2017-01-11 14:18] MED LIST: ACETAMINOPHEN PO; ALDACTONE PO; AMLODIPINE BESY10 MG PO; AMOXICILLIN500 M1 PO; ASPIRIN EC81 M1 PO; ASPIRIN81 M2 PO; AUGMENTIN PO; BUMEX1 MG PO; CARVEDILOL12.5 MG PO; COREG PO; COREG12.5 MG PO; COREG3.125 MG PO; COREG6.25 MG PO; COZAAR25 MG PO; DOXYCYCLINE PO; EASY-LAX100 MG PO; FERRO-TIME325 MG PO; GLUCOPHAGE PO; GLUCOTROL XL PO; GLUCOTROL10 MG PO; HYDRALAZINE HC100 MG PO; HYDRALAZINE HCL50 MG PO; HYDROCHLOROTHIA25 MG PO; LASIX PO; LISINOPRIL PO; LISINOPRIL10 MG PO; LISINOPRIL20 MG PO; LOPRESSOR PO; LOVASTATIN10 MG PO; METOPROLOL SUCC50 MG PO; MICRONASE5 M1 PO; MICRONASE5 M2 PO; NEXIUM40 MG/PACK PO; NORVASC PO; NORVASC10 MG PO; PHENERGAN25 MG PO; VITAMIN D PO; VITAMIN D50000 UNIT PO; ZOCOR10 MG PO
[2017-01-11 16:58] LABS: BASOPHIL# 0.1 X10e3 (0-0.3); BASOPHIL% 0.7 % (0-2.5); EOSINOPHIL# 0.1 X10e3 (0-0.7); EOSINOPHIL% 0.5 % (0.0-7.0); HEMATOCRIT 26.7 % (38.0-50.0); HEMOGLOBIN 8.9 gm/dL (13.0-16.0); LYMPHOCYTE# 0.5 X10e3 (1.0-3.5); LYMPHOCYTE% 3.4 % (17.0-45.0); MEAN CELL VOLUME 91.7 FL (83-96); MEAN CORPUSCULAR HEMOGLOBIN 30.4 PG (28-34); MEAN CORPUSCULAR HGB CONC 33.2 g/dL (30-36); MONOCYTE# 1.7 X10e3 (0-1.0); MONOCYTE% 11.4 % (3.0-12.0); NEUTROPHIL# 12.7 X10e3 (1.5-7.1); PLATELET COUNT 284 X10e3 (140-420); RED BLOOD COUNT 2.92 X10e (3.90-5.60); RED CELL DISTRIBUTION WIDTH 13.1 % (11.0-15.5); WHITE BLOOD COUNT 15.1 X10e3 (4.0-10.5)
[2017-01-11 16:59] LABS: DIFF IND YES
[2017-01-11 17:09] LABS: INR 1.1; PARTIAL THROMBOPLASTIN TIME 24.3 SECONDS (23.5-31.3); PROTHROMBIN TIME (PATIENT) 11.8 SECONDS (10.0-11.7)
[2017-01-11 17:09] LABS: POC - TROPONIN <0.05 ng/mL (<=0.05)
[2017-01-11 17:12] LABS: ALBUMIN SERUM 3.2 g/dL (3.5-5.0); BILIRUBIN, DIRECT 0.2 mg/dL (0.0-0.2); BILIRUBIN,INDIRECT 0.8 mg/dL (0.0-0.9); BUN/CREATININE RATIO 26.87; CALCIUM SERUM 8.6 mg/dL (8.4-10.2); CREATININE SERUM 3.2 mg/dL (0.6-1.4); GLOM FILT RATE Estimated 23.8 mL/min (>60); POTASSIUM 4.4 mmol/L (3.5-5.1)
[2017-01-11 17:43] LABS: ANISOCYTOSIS SL; PLATELET ESTIMATE NORMAL (NORMAL)
[2017-01-11] MEDS ORDERED: BUMEX1 MG PO (17:51)
[2017-01-11] MEDS ORDERED: MULTI-DAY VITA1 EACH PO (17:52)
[2017-01-11] MEDS ORDERED: ASPIRIN81 M2 PO (17:52)
[2017-01-11] MEDS ORDERED: COREG12.5 M1 PO (17:53)
[2017-01-11] MEDS ORDERED: FERROUS SULFATE PO (17:53)
[2017-01-11] MEDS ORDERED: HYDRALAZINE HC100 MG PO (17:55)
[2017-01-11] MEDS ORDERED: COZAAR PO (18:01)
[2017-01-11 18:35] LABS: URINE SOURCE CLEAN CATCH
[2017-01-11 18:43] LABS: URINE APPEARANCE CLEAR; URINE BILIRUBIN NEG (NEG); URINE BLOOD NEG (NEG); URINE COLOR YELLOW; URINE GLUCOSE NEG (NEG); URINE KETONE NEG (NEG); URINE LEUKOCYTE ESTERASE NEG (NEG); URINE NITRATE NEG (NEG); URINE PROTEIN 2+ (NEG); URINE SPECIFIC GRAVITY 1.015 (1.003-1.035); URINE UROBILINOGEN 0.2 MG/DL (NEG)
[2017-01-11 18:45] LABS: URINE BACTERIA AUWI NEG (NEGATIVE); URINE SQUAMOUS EPITHELIAL CELL NONE SEEN /[HPF]; UWBCS1 AUWI 0-2 (0-5)
[2017-01-11 18:50] LABS: CULTURE INDICATED? NO
[2017-01-11 19:09] LABS: POC - CKMB 6.1 ng/mL (0.0-7.9); POC - TROPONIN <0.05 ng/mL (<=0.05)
[2017-01-12 05:21] LABS: BASOPHIL# 0.1 X10e3 (0-0.3); BASOPHIL% 0.6 % (0-2.5); EOSINOPHIL# 0.2 X10e3 (0-0.7); EOSINOPHIL% 1.8 % (0.0-7.0); HEMATOCRIT 26.2 % (38.0-50.0); HEMOGLOBIN 8.5 gm/dL (13.0-16.0); LYMPHOCYTE# 0.7 X10e3 (1.0-3.5); LYMPHOCYTE% 5.3 % (17.0-45.0); MEAN CORPUSCULAR HEMOGLOBIN 29.9 PG (28-34); MEAN CORPUSCULAR HGB CONC 32.5 g/dL (30-36); MEAN PLATELET VOLUME 9.1 FL (6.5-11.5); MONOCYTE# 1.9 X10e3 (0-1.0); MONOCYTE% 14.6 % (3.0-12.0); NEUTROPHIL% 77.7 % (40-75); PLATELET COUNT 296 X10e3 (140-420); RED BLOOD COUNT 2.84 X10e (3.90-5.60); RED CELL DISTRIBUTION WIDTH 12.9 % (11.0-15.5); WHITE BLOOD COUNT 12.8 X10e3 (4.0-10.5)
[2017-01-12 05:22] LABS: DIFF IND NO
[2017-01-12 05:55] LABS: BUN/CREATININE RATIO 28.14; CALCIUM SERUM 8.3 mg/dL (8.4-10.2); CREATININE SERUM 2.7 mg/dL (0.6-1.4); GLOM FILT RATE Estimated 29.2 mL/min (>60); POTASSIUM 4.2 mmol/L (3.5-5.1)
[2017-01-12 09:39] LABS: IRON SERUM 10 ug/dL (45-182); SODIUM 140 mmol/L (135-145); TOTAL IRON BINDING CAPACITY 166 ug/dL (252-460); TRANSFERRIN 118 mg/dL (180-329); TRANSFERRIN SATURATION 6 % (20-50)
[2017-01-12 11:59] LABS: THYROID STIMULATING HORMONE 0.57 uIU/ml (0.34-5.60)
[2017-01-12 12:06] LABS: FREE THYROXIN (T4) 0.96 ng/dL (0.58-1.64)
[2017-01-12 12:12] LABS: FOLATE (FOLIC ACID) 7.4 ng/mL (>5.8)
[2017-01-13 04:47] LABS: HEMATOCRIT 23.7 % (38.0-50.0); HEMOGLOBIN 7.8 gm/dL (13.0-16.0); MEAN CELL VOLUME 92.6 FL (83-96); MEAN CORPUSCULAR HEMOGLOBIN 30.5 PG (28-34); MEAN PLATELET VOLUME 8.8 FL (6.5-11.5); RED BLOOD COUNT 2.56 X10e (3.90-5.60); RED CELL DISTRIBUTION WIDTH 13.2 % (11.0-15.5); WHITE BLOOD COUNT 14.8 X10e3 (4.0-10.5)
[2017-01-13 05:11] LABS: BUN/CREATININE RATIO 26.42; CALCIUM SERUM 8.1 mg/dL (8.4-10.2); CREATININE SERUM 2.8 mg/dL (0.6-1.4); MAGNESIUM 2.1 mg/dL (1.6-3.0); PHOSPHOROUS 3.5 mg/dL (2.5-4.6); POTASSIUM 4.5 mmol/L (3.5-5.1); URIC ACID 12.4 mg/dL (2.6-7.2)
[2017-01-14 05:54] LABS: ALBUMIN SERUM 2.3 g/dL (3.5-5.0); BILIRUBIN,TOTAL 0.7 mg/dL (0.2-2.0); BUN/CREATININE RATIO 26.55; CALCIUM SERUM 8.2 mg/dL (8.4-10.2); CREATININE SERUM 2.9 mg/dL (0.6-1.4); GLOM FILT RATE Estimated 26.8 mL/min (>60); POTASSIUM 4.9 mmol/L (3.5-5.1); PROTEIN TOTAL SERUM 7.1 g/dL (6.0-8.3)
[2017-01-15 07:58] LABS: HEMATOCRIT 24.8 % (38.0-50.0); MEAN CELL VOLUME 93.2 FL (83-96); MEAN CORPUSCULAR HEMOGLOBIN 30.1 PG (28-34); MEAN CORPUSCULAR HGB CONC 32.3 g/dL (30-36); MEAN PLATELET VOLUME 8.8 FL (6.5-11.5); RED BLOOD COUNT 2.66 X10e (3.90-5.60); RED CELL DISTRIBUTION WIDTH 13.6 % (11.0-15.5); WHITE BLOOD COUNT 20.3 X10e3 (4.0-10.5)
[2017-01-15 08:22] LABS: ALBUMIN SERUM 2.4 g/dL (3.5-5.0); BILIRUBIN,TOTAL 0.7 mg/dL (0.2-2.0); BUN/CREATININE RATIO 29.25; CALCIUM SERUM 8.5 mg/dL (8.4-10.2); CREATININE SERUM 2.7 mg/dL (0.6-1.4); GLOM FILT RATE Estimated 29.2 mL/min (>60); MAGNESIUM 2.3 mg/dL (1.6-3.0); POTASSIUM 5.2 mmol/L (3.5-5.1)
[2017-01-15 19:36] LABS: URINE APPEARANCE CLEAR; URINE BILIRUBIN NEG (NEG); URINE BLOOD NEG (NEG); URINE COLOR YELLOW; URINE GLUCOSE NEG (NEG); URINE KETONE NEG (NEG); URINE LEUKOCYTE ESTERASE 2+ (NEG); URINE NITRATE NEG (NEG); URINE PROTEIN 2+ (NEG); URINE SPECIFIC GRAVITY 1.019 (1.003-1.035); URINE UROBILINOGEN 0.2 MG/DL (NEG)
[2017-01-15 19:38] LABS: URINE BACTERIA AUWI NEG (NEGATIVE); URINE SQUAMOUS EPITHELIAL CELL OCC /[HPF]
[2017-01-15 19:48] LABS: URINE YEAST PRESENT
[2017-01-15 22:45] LABS: ANA SCREEN Negative (Negative)
[2017-01-16 06:00] LABS: HEMATOCRIT 22.5 % (38.0-50.0); HEMOGLOBIN 7.5 gm/dL (13.0-16.0); MEAN CELL VOLUME 92.3 FL (83-96); MEAN CORPUSCULAR HEMOGLOBIN 30.6 PG (28-34); MEAN CORPUSCULAR HGB CONC 33.2 g/dL (30-36); MEAN PLATELET VOLUME 8.7 FL (6.5-11.5); RED BLOOD COUNT 2.44 X10e (3.90-5.60); RED CELL DISTRIBUTION WIDTH 13.3 % (11.0-15.5); WHITE BLOOD COUNT 18.9 X10e3 (4.0-10.5)
[2017-01-16 06:21] LABS: BUN/CREATININE RATIO 34.58; CALCIUM SERUM 8.1 mg/dL (8.4-10.2); CREATININE SERUM 2.4 mg/dL (0.6-1.4); GLOM FILT RATE Estimated 33.7 mL/min (>60); POTASSIUM 5.3 mmol/L (3.5-5.1)
[2017-01-17 06:18] LABS: HEMATOCRIT 25.5 % (38.0-50.0); HEMOGLOBIN 8.4 gm/dL (13.0-16.0); MEAN CELL VOLUME 90.7 FL (83-96); MEAN CORPUSCULAR HEMOGLOBIN 29.9 PG (28-34); MEAN PLATELET VOLUME 8.5 FL (6.5-11.5); RED BLOOD COUNT 2.81 X10e (3.90-5.60); RED CELL DISTRIBUTION WIDTH 14.2 % (11.0-15.5); WHITE BLOOD COUNT 18.1 X10e3 (4.0-10.5)
[2017-01-17 07:10] LABS: ALBUMIN SERUM 2.3 g/dL (3.5-5.0); BILIRUBIN,TOTAL 0.7 mg/dL (0.2-2.0); BUN/CREATININE RATIO 36.08; CREATININE SERUM 2.3 mg/dL (0.6-1.4); GLOM FILT RATE Estimated 35.5 mL/min (>60); MAGNESIUM 2.2 mg/dL (1.6-3.0); PHOSPHOROUS 2.8 mg/dL (2.5-4.6); POTASSIUM 4.7 mmol/L (3.5-5.1); PROTEIN TOTAL SERUM 6.3 g/dL (6.0-8.3)
[2017-01-17 16:08] LABS: COMPLEMENT C3 148 mg/dL (90-180); COMPLEMENT C4 28 mg/dL (16-47)
[2017-01-18 05:19] LABS: HEMATOCRIT 26.6 % (38.0-50.0); HEMOGLOBIN 8.6 gm/dL (13.0-16.0); MEAN CELL VOLUME 91.2 FL (83-96); MEAN CORPUSCULAR HEMOGLOBIN 29.4 PG (28-34); MEAN CORPUSCULAR HGB CONC 32.3 g/dL (30-36); MEAN PLATELET VOLUME 8.3 FL (6.5-11.5); RED BLOOD COUNT 2.92 X10e (3.90-5.60); RED CELL DISTRIBUTION WIDTH 14.4 % (11.0-15.5); WHITE BLOOD COUNT 20.7 X10e3 (4.0-10.5)
[2017-01-18 05:32] LABS: INR 1.2
[2017-01-18 07:21] LABS: BUN/CREATININE RATIO 34.09; CALCIUM SERUM 8.1 mg/dL (8.4-10.2); CREATININE SERUM 2.2 mg/dL (0.6-1.4); GLOM FILT RATE Estimated 37.4 mL/min (>60); POTASSIUM 4.8 mmol/L (3.5-5.1)
[2017-01-18] MEDS ORDERED: PREDNISONE PO (14:26)
[2017-01-18] MEDS ORDERED: SOD BICARBONATE PO (14:27)
[2017-01-18] MEDS ORDERED: WARFARIN SODIUM3 M1 PO (14:28)
[2017-01-18] MEDS ORDERED: ACETAMINOPHEN PO (14:28)
[2017-01-18] MEDS ORDERED: FLUCONAZOLE100 M1 PO (14:29)
[2017-01-18] MEDS ORDERED: CARVEDILOL25 MG PO (14:29)
[2017-01-18] MEDS ORDERED: AMLODIPINE BESY10 MG PO (14:30)
[2017-01-18] MEDS ORDERED: LIPITOR40 MG PO (14:31)
[2017-01-18] MEDS ORDERED: COZAAR PO (14:32)
[2017-01-18] MEDS ORDERED: LEVEMIR FL100 UNIT/1 SUBQ (14:33)
[2017-01-18] MEDS ORDERED: LORTAB 7.5-3251 EACH PO (14:34)
[2017-01-18] MEDS ORDERED: ULORIC40 MG PO (14:35)
[2017-01-18] MEDS ORDERED: PREDNISONE10 M1 (14:36)
[2017-01-18] MEDS ORDERED: CHLORTHALIDONE25 MG PO (14:59)
[2017-01-21 11:53] LABS: ANA SCREEN Negative (Negative); HEP C AB (HEPPAN) Nonreactive (Nonreactive); HEP C AB SIGNAL TO CUTOFF 0.09 ratio (<1.00); MYELOPEROXIDASE AB (PNL) <1.0 AI (<1.0); PROTEINASE-3 AB (PNL) <1.0 AI (<1.0)
== END 2017-01-18 16:40 | disposition home health service (06) | DRG 515 ==
LOC: CED 14:18 → C3A PCU 19:00 → CED 19:00 → C3A PCU 19:22 → CED 19:22 → C3A PCU 01-12 08:19 → CED 01-13 17:00 → C3A PCU 01-18 16:40
PROVIDERS: Emergency Medicine; Family Medicine; Internal Medicine; Internal Medicine Nephrology; Psychiatry & Neurology Neurology
PROC: B246YZZ Ultrasonography of Right and Left Heart using Other Contrast (ICD-10-PCS; 2017-01-13)
PROC: B246ZZ4 Ultrasonography of Right and Left Heart, Transesophageal (ICD-10-PCS; 2017-01-14)
PROC: 03BT0ZX Excision of Left Temporal Artery, Open Approach, Diagnostic (ICD-10-PCS; 2017-01-15)
PROC: 30233N1 Transfusion of Nonautologous Red Blood Cells into Peripheral Vein, Percutaneous Approach (ICD-10-PCS; 2017-01-16)
PROC: 0DB68ZX Excision of Stomach, Via Natural or Artificial Opening Endoscopic, Diagnostic (ICD-10-PCS; principal; 2017-01-16 16:55)
DX: M31.6 Other giant cell arteritis (principal); K29.71 Gastritis, unspecified, with bleeding; E11.42 Type 2 diabetes mellitus with diabetic polyneuropathy; N17.9 Acute kidney failure, unspecified; I13.0 Hypertensive heart and chronic kidney disease with heart failure and stage 1 through stage 4 chronic kidney disease, or unspecified chronic kidney disease; I50.22 Chronic systolic (congestive) heart failure; N18.3 Chronic kidney disease, stage 3 (moderate); D50.9 Iron deficiency anemia, unspecified; F17.210 Nicotine dependence, cigarettes, uncomplicated; G45.9 Transient cerebral ischemic attack, unspecified; N39.0 Urinary tract infection, site not specified; I95.1 Orthostatic hypotension; E11.65 Type 2 diabetes mellitus with hyperglycemia; I25.10 Atherosclerotic heart disease of native coronary artery without angina pectoris; Z95.1 Presence of aortocoronary bypass graft; E87.5 Hyperkalemia; M10.9 Gout, unspecified; E66.9 Obesity, unspecified; Z79.82 Long term (current) use of aspirin; Z82.49 Family history of ischemic heart disease and other diseases of the circulatory system; M19.90 Unspecified osteoarthritis, unspecified site; Z83.3 Family history of diabetes mellitus; E79.0 Hyperuricemia without signs of inflammatory arthritis and tophaceous disease; K20.9 Esophagitis, unspecified
CPT/HCPCS: 36415; 70450; 70544; 70547; 70551; 71010; 76770; 80048; 80053; 80076; 81003; 82274; 82550; 82553; 82607; 82728; 82746; 82947; 83520; 83540; 83550; 83735; 84100; 84295; 84439; 84443; 84484; 84550; 85025; 85027; 85610; 85652; 85730; 86021; 86038; 86039; 86140; 86160; 86803; 86850; 86900; 86901; 86923; 87040; 87086; 88305; 88312; 89190; 93005; 93306; 93312; 94760; 97110; 97116; 97162; 97166; 97530; 97535; 99285; G8978-GP; G8979-GP; G8987-GO; G8988-GO; J1815; J2250; J2916; J2920; J3010; P9016